=== PATIENT | male | born 1970 | race Caucasian/White ===

== ENCOUNTER → 2023-01-04 07:51 | Outpatient (CLI) | payer OTHER, SELFPAY ==
--- NOTE | ~2023-01-04 | MR_ITS ---
MRI of the lumbar spine Clinical History: Sciatica Technique: Axial T2-weighted images, and sagittal T1-weighted, T2-weighted, and and T2 fat-sat images were acquired. Findings: There is no fracture or subluxation of the lumbar spine. Vertebral bodies maintain normal h eight and alignment. No suspicious bone marrow signal abnormality seen. At L1-L2, there is no disc bulge or herniation. There is moderate facet arthropathy. No central canal stenosis or neural foraminal narrowing. At L2-L3, there is minimal disc bulge with moderate facet arthropathy. No central canal stenosis or n eural foraminal narrowing. At L3-L4, there is minimal disc bulge with tiny annular fissure. There is mild to moderate facet arth ropathy. No central canal stenosis. There is mild bilateral neural foraminal narrowing. At L4-L5, there is mild disc bulge with moderate facet arthropathy. No central canal stenosis. There is mild to moderate bilateral neural foraminal narrowing. At L5-S1, there is disc bulge and moderate facet arthropathy. No afua central canal stenosis. There is moderate to advanced left neural foraminal narrowing, and minimal right neural foraminal narrowing . Paravertebral soft tissues are unremarkable. Impression: Mild degenerative spondylosis overall, as detailed above. Reviewed, dictated and finalized at location . Impression: Mild degenerative spondylosis overall, as detailed above.
== END ==
PROVIDERS: PCP Physician Assistant Medical; Visit Provider Physician Assistant Medical
DX: M54.30 Sciatica, unspecified side (principal); M47.896 Other spondylosis, lumbar region
CPT/HCPCS: 72148